=== PATIENT | male | born 1980 | race Caucasian/White ===

== ENCOUNTER 2017-02-20 17:17 | Observation (INO) ==
--- NOTE | 2017-02-20 18:19 | Emergency Department Note ---
Disposition Clinical Impression: Abscess of skin or subcutaneous tissue Qualifiers: Site of cutaneous abscess: other site Qualified Code(s): L02.818 - Cutaneous abscess of other sites Disposition: Admitted As Inpatient Condition: Good Time of Disposition: 20:31 General Adult HPI - General Chief complaint: ED Skin/Abscess/Foreign Body Stated complaint: abcess on Right arm an left leg Time Seen by Provider: 02/20/17 17:38 Source: patient Limitations: no limitations Nursing Notes Reviewed: Yes Vital Signs Reviewed: Yes - History of Present Illness HPI Narrative: 36-year-old male with significant past medical history of hepatitis C and meth use sent from [place] [facility] for concern for multiple abscesses. Patient states he was using meth a few days ago he lost 2 days of time and when he came to he realized he was poking at his skin with tweezers. He states he was concerned he had an ingrown hair. Patient denies injecting meth into any of these areas. On exam he has multiple abscess in the left leg, right arm, right axilla. He states they are nonpainful and have already been spontaneously draining. He states he took 1 Bactrim pill and 2 penicillin pills that he had left over at home for this. Patient denies fever, chest pain, shortness of breath. He denies nausea or vomiting at this time. Pain Scale: 8 - Related Data Home Medications Medication Instructions Recorded Confirmed No Known Home Drugs 02/20/17 02/20/17 Allergies Allergy/AdvReac Type Severity Reaction Status Date / Time No Known Allergies Allergy Verified 02/20/17 17:31 All systems ED: reviewed and negative except as stated. Constitutional: Denies: fever, chills, weakness Eyes: Reports: as per HPI ENT ED: Reports: as per HPI Cardiovascular: Denies: chest pain, palpitations Respiratory: Denies: cough, dyspnea, wheezes Gastrointestinal: Denies: abdominal pain, nausea, vomiting Genitourinary: Reports: as per HPI Musculoskeletal: Reports: as per HPI Integumentary: Reports: other (Multiple open abscesses noted on the left leg right arm and right axilla) Neurological: Reports: as per HPI Psychiatric: Reports: as per HPI Endocrine: Reports: as per HPI Hematological/Lymphatic: Reports: as per HPI Allergic/Immunologic: Reports: as per HPI Past Medical History - Past Medical History Attestation: Yes The following information was validated with the patient. Medical history: Reports: hepatitis, other Psychiatric history: Reports: anxiety, bipolar, depression, PTSD - Social History Smoking Status: Current every day smoker Smokeless Tobacco Status: No Alcohol use: Reports: none Drug use: Reports: opiates, IV Drug Use, prescription drug abuse Physical Exam - General Limitations: no limitations General appearance: alert, in no apparent distress - Head Head exam: atraumatic, normocephalic, normal inspection - Chest Chest inspection: Present: normal inspection, symmetric chest wall rise. Absent : tenderness - Respiratory Respiratory exam: Present: normal lung sounds bilaterally. Absent: respiratory distress, wheezes - Cardiovascular Cardiovascular exam: Present: normal rhythm, tachycardia, normal heart sounds - Abdominal Exam Abdominal exam: Present: soft, Non-Tender. Absent: distention, guarding, rebound - Extremities Exam Extremities exam: Present: full ROM - Neurological Exam Neurological exam: Present: alert, oriented X3 - Psychiatric Psychiatric exam: Present: normal affect, normal mood - Skin Skin exam: Present: other (Multiple abscesses noted. One on inner left thigh, 2 on the right forearm. Large closed fluid-filled abscess noted in the right axilla. All other abscesses have spontaneously opened and scabbed over. Red streaking noted from the right axilla is abscess. Redness and warmth to the left side near the open abscess. No crepitus noted on exam) Course Course Narrative: 36-year-old male sent over from the [place] urgent care for concern of infection and abscess. Patient denies any systemic symptoms at this time but he is concerned he will not completely outpatient therapy. We will obtain basic lab work and I& D the abscess under the right axilla and admit him for IV antibiotics at this time. He is alert and oriented in the room with stable vital signs at this time. - Reevaluation(s) Reevaluation #1: Completed I&D on the right arm and right axilla the patient with no complications. We will start the patient on vancomycin at this time and admit him to the hospitalist service. Time: 19:34 Reevaluation #2: Dr. Perez accepts the patient. He is alert and oriented 3 in the room and vital signs are stable at this time. Time: 20:30 Vital Signs Temperature 98.4 F 02/20/17 17:32 Pulse Rate 109 02/20/17 17:32 Respiratory Rate 20 10/20/17 17:32 Blood Pressure 122/76 02/20/17 17:32 O2 Sat by Pulse Oximetry 94 02/20/17 17:32 Temperature 98.4 F 02/20/17 17:32 Pulse Rate 109 02/20/17 17:32 Respiratory Rate 16 02/20/17 21:19 Blood Pressure 120/74 02/20/17 21:19 O2 Sat by Pulse Oximetry 94 02/20/17 17:32 Oxygen Delivery Oxygen Delivery Room Air Procedures - Abscess I/D Consent obtained: verbal consent Site: upper extremity Side (if applicable): right Sedation/analgesia: none Local Anesthetic: lidocaine 1% Amount of Anesthesia Used (mL): 5 Technique: incised with #11 blade Irrigation: No Packing used?: plain Complications: other Medical Decision Making - Lab Data Result diagrams: 02/20/17 18:26 02/20/17 18:26 Lab Results 02/20/17 02/20/17 Range/Units 18:26 18:26 WBC 9.7 (4.3-11.1) K/mcL RBC 5.06 (4.19-5.50) M/mcL Hgb 14.9 (12.9-16.9) g/dL Hct 45.1 (37.5-50.1) % MCV 89.1 (83.0-100.0) fL MCH 29.4 (28.0-33.3) pg MCHC 33.0 (31.6-35.5) g/dL RDW 14.4 (11.5-14.5) % Plt Count 164 (140-400) K/mcL MPV 10.9 (9.4-12.4) fL Immature Gran % 0.6 (0-4) % Seg Neutrophils % 74.6 % Lymphocytes % 17.8 % Monocytes % 6.2 % Eosinophils % 0.5 % Basophils % 0.3 % Neutrophils # 7.3 (1.6-8.9) K/mcL Lymphocytes # 1.7 (0.6-4.6) K/mcL Monocytes # 0.6 (0.0-1.3) K/mcL Eosinophils # 0.1 (0.0-0.6) K/mcL Basophils # 0.0 (0.0-0.2) K/mcL Sodium 138 (136-145) mEq/L Potassium 4.3 (3.5-4.5) mEq/L Chloride 100 (98-109) mEq/L Carbon Dioxide 29 (19-29) mEq/L BUN 7 L (8-26) mg/dL Creatinine 0.76 (0.72-1.25) mg/dL Est GFR ( Amer) > 60 (> 60) Est GFR (Non-Af Amer) > 60 (> 60) BUN/Creatinine Ratio 9 (6-26) Glucose 87 (70-99) mg/dL Calculated Osmolality 283 (280-300) Calcium 9.5 (8.6-10.8) mg/dL Attestation Statement - Attestation Attestation: I, [place], examined this patient and my medical decision-making was reviewed with the TRANSPORTATION DIRECTOR/PA/Advanced Practice Nurse/Resident Physician. I agree with the documented findings, disposition and treatment plan as described except to the extent set forth below. 36-year-old male with multiple abscesses secondary to IV drug use and "picking" . No history of MRSA. Never had symptoms like this in the past. No history of MRSA. Physical exam shows fluctuance and induration to the abscess of the r axilla with induration present to the r forearm, r wrist, and left proximal thigh. There is surrounding erythema to all of these locations. Patient denies fever, nausea, vomiting, diarrhea, syncope. Patient took Bactrim and penicillin yesterday without improvement of his symptoms. Patient will be admitted to the hospital for further care and evaluation. Abscess was incised and drained by the resident in the emergency department.
[2017-02-20] MEDS ORDERED: Vancomycin 1,000 MG in D5% in Water 250 ML IVPB ONE (18:22)
[2017-02-20] MEDS ORDERED: Lidocaine 1% 20 ML MDV INFILT ONE (18:25)
[2017-02-20 18:31] LABS: Basophils % 0.3 %; Eosinophils # 0.1 K/mcL (0.0-0.6); Eosinophils % 0.5 %; Hematocrit 45.1 % (37.5-50.1); Hemoglobin 14.9 g/dL (12.9-16.9); Immature Granulocytes % 0.6 % (0-4); Lymphocytes # 1.7 K/mcL (0.6-4.6); Lymphocytes % 17.8 %; Mean Corpuscular Hemoglobin 29.4 pg (28.0-33.3); Mean Corpuscular Volume 89.1 fL (83.0-100.0); Mean Platelet Volume 10.9 fL (9.4-12.4); Monocytes # 0.6 K/mcL (0.0-1.3); Monocytes % 6.2 %; Neutrophils # 7.3 K/mcL (1.6-8.9); Platelet Count 164 K/mcL (140-400); Red Blood Count 5.06 M/mcL (4.19-5.50); Red Cell Distribution Width 14.4 % (11.5-14.5); Segmented Neutrophils % 74.6 %
[2017-02-20 18:47] LABS: BUN/Creatinine Ratio 9 (6-26); Blood Urea Nitrogen 7 mg/dL (8-26); Calcium 9.5 mg/dL (8.6-10.8); Carbon Dioxide 29 mEq/L (19-29); Chloride 100 mEq/L (98-109); Glucose 87 mg/dL (70-99); Osmolality,Calculated 283 (280-300); Potassium 4.3 mEq/L (3.5-4.5); Sodium 138 mEq/L (136-145); eGFR For African Americans > 60 (> 60); eGFR For Non-African Americans > 60 (> 60)
--- NOTE | 2017-02-21 02:14 | Internal Med History&Physical ---
Date of Encounter: 02/21/17 Time of Encounter: 02:12 Assessment and Plan (1) Abscess of skin or subcutaneous tissue Current visit: Yes Status: Acute We will start the patient on vancomycin and Zosyn. He had two abscesses drained in the emergency room. Check wound culture. Patient lost 25 pounds during the past month. Will discuss with the patients regarding HIV check. I would also check echocardiogram, ESR, CRP, blood cultures, because of significant weight loss without possibility of chronic infectious conditions like endocarditis. Observation admission. Full code. Qualifiers: Site of cutaneous abscess: other site Qualified Code(s): L02.818 - Cutaneous abscess of other sites Internal Medicine - H&P: HPI Chief complaint: skin abscesses History of present illness: Mr. Li is a 36 year old male who is an IV drug abusers with history of hepatitis C virus presents to the emergency room today with multiple skin abscesses. For the past 10 days patient noticed multiple areas of his skin that are red warm tender and swollen. Yesterday the patient started taking penicillin without improvement. Subjective chills. Patient mentioned that he has been using meth very frequently recently. Patient mentioned that he had lost significant amount of weight during the past month approximately 25 pounds. Patient denies any other blood-borne disease. Past Med Surg Social Fam HX - Past Medical History Medical history: hepatitis, other Psychiatric history: anxiety, bipolar, depression, PTSD - Social History Smoking Status: Current every day smoker Packs per day: 1 Smokeless Tobacco Status: No Alcohol use: none Drug use: opiates, methamphetamine, IV Drug Use, prescription drug abuse Internal Medicine - H&P: Meds No Known Home Drugs 02/20/17 [History] 3 Allergy/AdvReac Type Severity Reaction Status Date / Time No Known Allergies Allergy Verified 02/20/17 17:31 All Systems PM: A 10-system review of systems was performed and is negative for pertinent findings except as documented above in the HPI. Review of systems: 10 point review of systems is negative except for HPI - Constitutional Vitals: Temp Pulse Resp BP Pulse Ox 98.9 F 87 16 116/73 97 02/20/17 23:53 02/20/17 23:53 02/20/17 23:53 02/20/17 23:53 02/20/17 23:53 Internal Med - H&P Results - Labs CBC & Chem 7: 02/20/17 18:26 02/20/17 18:26
[2017-02-21] MEDS ORDERED: Vancomycin 1,000 MG in D5% in Water 250 ML IVPB SCH ×2 (03:00→06:00)
[2017-02-21 05:11] LABS: Basophils % 0.4 %; Eosinophils # 0.3 K/mcL (0.0-0.6); Eosinophils % 3.4 %; Hematocrit 41.7 % (37.5-50.1); Hemoglobin 13.7 g/dL (12.9-16.9); Immature Granulocytes % 0.5 % (0-4); Lymphocytes # 1.9 K/mcL (0.6-4.6); Lymphocytes % 23.7 %; Mean Corpuscular HGB Conc 32.9 g/dL (31.6-35.5); Mean Corpuscular Hemoglobin 29.3 pg (28.0-33.3); Mean Corpuscular Volume 89.3 fL (83.0-100.0); Monocytes # 0.6 K/mcL (0.0-1.3); Monocytes % 7.9 %; Neutrophils # 5.1 K/mcL (1.6-8.9); Platelet Count 167 K/mcL (140-400); Red Blood Count 4.67 M/mcL (4.19-5.50); Red Cell Distribution Width 14.4 % (11.5-14.5); Segmented Neutrophils % 64.1 %
[2017-02-21 05:19] LABS: BUN/Creatinine Ratio 12 (6-26); Blood Urea Nitrogen 8 mg/dL (8-26); C-Reactive Protein 44 mg/L (Less than 5); Calcium 8.9 mg/dL (8.6-10.8); Carbon Dioxide 28 mEq/L (19-29); Chloride 104 mEq/L (98-109); Glucose 97 mg/dL (70-99); Osmolality,Calculated 288 (280-300); Sodium 140 mEq/L (136-145); eGFR For African Americans > 60 (> 60); eGFR For Non-African Americans > 60 (> 60)
[2017-02-21] MEDS ORDERED: *HR* Heparin 5,000 UNIT/ML VIAL SQ SCH (06:00)
[2017-02-21] MEDS: Piperacillin/Tazobactam 3.375 GM in D5% in Water (Mini-Bag+) 100 ML IVPB SCH ×2 (08:01→15:46)
[2017-02-21] MEDS: *HR* Morphine 2 MG/ML SYRINGE IVP PRN ×2 (08:03→12:08)
--- NOTE | 2017-02-21 11:46 | Event Note ---
Date of Encounter: 02/21/17 Time of Encounter: 09:25 Patient complaining of pain but otherwise doing better. No fever or chills reported overnight. Multiple skin abscesses status post incision and drainage of right axillary region abscess and right forearm abscess. Continue current antibiotics. If patient develops any further abscesses, we will consult surgery. Follow culture results.
[2017-02-21 16:11] VITALS: BP 128/77
[2017-02-21] MEDS ORDERED: Aminoglycoside Consult 1 EACH MC ONE (17:19)
== END 2017-02-21 17:20 | disposition left against medical advice (07) ==
LOC: 3NENU 17:17 → EMEROO 17:17 → SUATTDRO 20:46 → 3NENU 21:20
PROVIDERS: ADMIT Hospitalist; ATTEND Internal Medicine